=== PATIENT | male | born 1955 | race African-American/Black ===

== ENCOUNTER 2024-07-08 10:40 | Emergency (ER) | payer BC ==
[~2024-07-08] VITALS: Ht 167.6 cm; Wt 71.0 kg
[2024-07-08 10:45] VITALS: TEMP 98.4; O2SAT 98
[2024-07-08 14:52] VITALS: BP 134/88; PULSE 66; RESP 16; O2SAT 99
== END 2024-07-08 14:54 | disposition home or self-care (01) ==
LOC: ER 10:53
DX: R22.2 Localized swelling, mass and lump, trunk (principal)
CPT/HCPCS: 76881; 99284